=== PATIENT | male | born 1980 | race Caucasian/White ===

== ENCOUNTER 2016-11-10 03:26 | Inpatient (IN) | payer OTHER ==
[~2016-11-10] VITALS: Ht 190.5 cm; Wt 113.4 kg
[2016-11-10 04:39] VITALS: BP 123/86
--- NOTE | 2016-11-10 04:39 | NUR ---
Admission Note Pt is a 36 year old male admitted to [facility] on 11/08/2016 for Opiate/Benzo/Crystal Methamphetamine/Cocaine Dependence, on the [place] at 0439. NKA, denies history of seizures. Pt was able to provide urine drug screen. COWS 4, CIWA 4, BP 123/86, pulse 99, respirations 16, Spo2 98%, temp 98.5, pain 0/10, weight 250 lb and height 6'3''. Pts primary care provider is Dr. Dodge in [place]. Pt denies being hospitalized within the past 30 days. Substance Abuse History is as follows: 1.Heroin IV 1g/daily, last intake of 1g on 11/10/2016, at this rate for 2 years. Pt reports he has been using since the age of 21. 2. Xanax 2.5 bars/daily, last intake of 2 bars on 11/10/2016, at this rate of 2 year on and off. Pt reports he has been using since the age of 21. 3.Crystal Methamphetamine IV 0.75g/daily, last intake of 0.75 g on 11/10/2016, at this rate of 2 year on and off. Pt reports he has been using since the age of 21. 4.Cocaine IV 1-2g/daily, last intake of 0.5 g on 11/10/16, at this rate for the past 3 months. Treatment History: [facility] 2014 for 80 days, [facility] [place] 2015 for 50 day and [facility] in 2014. Pt longest sober period is for 34 months from 2009 - 2012. Pt states, "If I knew why I use, I would tell you". Family history: "Both my parents and my older brother have history of substance abuse". PMH: GERD. Pt brought medications from home: Bactrim 800/160mg and Keflex 500mg, mediations reconciled. Pt has abscesses throughout body d/t injection of substances. Pictures taken and placed in chart. Upon assessment, pt is alert/oriented x4, speech normal/audible. PERRLA. Breathing even and unlabored, lung sounds clear, heart rate regular, denies SOB/chest pain. Skin warm, moist and intake. Bowel sounds active x4, abdomen soft. Pt denies SI/HI. Education hands provided, at bedside. Pt oriented to room and encouraged to notify staff with any concerns. Safety measures in place, call light within reach, side rails up x2, bed locked and in low position. Will continue to monitor. Addendum: 11/10/16 at 0735 by ALEXANDRO WEN RN CORRECTION: Pt is a 36 year old male admitted to [facility] on 11/10/2016 for Opiate/Benzo/Crystal Methamphetamine/Cocaine Dependence, on the [place] at 0439.
[2016-11-10] MEDS ORDERED: CLONIDINE HCL 0.1 MG TABLET PO PRN (05:45)
[2016-11-10] MEDS ORDERED: METHOCARBAMOL 750 MG TABLET PO PRN (05:45)
[2016-11-10] MEDS ORDERED: IBUPROFEN 400 MG TABLET PO PRN (05:45)
[2016-11-10] MEDS ORDERED: MAGNESIUM HYDROXIDE 30 ML LIQUID UDC PO PRN (05:45)
[2016-11-10] MEDS ORDERED: DICYCLOMINE HCL 20 MG TABLET PO PRN (05:45)
[2016-11-10] MEDS ORDERED: ACETAMINOPHEN 325 MG TABLET PO PRN (05:45)
[2016-11-10] MEDS ORDERED: ONDANSETRON ODT 4 MG TAB.RAPDIS SL PRN (05:45)
[2016-11-10] MEDS ORDERED: HYDROXYZINE PAMOATE 25 MG CAPSULE PO PRN (05:45)
[2016-11-10] MEDS ORDERED: LOPERAMIDE HCL 2 MG CAPSULE PO PRN ×2 (05:45)
[2016-11-10] MEDS ORDERED: MIRALAX 17 GM POWD.PACK PO PRN (05:45)
[2016-11-10] MEDS ORDERED: PROMETHAZINE HCL 25 MG/1 ML VIAL IM PRN (05:45)
[2016-11-10] MEDS ORDERED: BUPRENORPHINE HCL 2 MG TAB.SUBL SL PRN (05:45)
[2016-11-10] MEDS ORDERED: LORAZEPAM 2 MG/1 ML VIAL IM PRN (06:00)
[2016-11-10] MEDS ORDERED: DIAZEPAM 10 MG TABLET PO PRN ×2 (06:00)
[2016-11-10] MEDS ORDERED: DIAZEPAM 5 MG TABLET PO PRN (06:00)
[2016-11-10] MEDS ORDERED: CEPH500C2 PO (06:44)
[2016-11-10] MEDS ORDERED: SULF1TAB48 PO (06:44)
[2016-11-10 07:36] LABS: *AMPHETAMINE, URINE POSITIVE (NEGATIVE); *BARBITURATE, URINE NEGATIVE (NEGATIVE); *CANNABINOID, URINE NEGATIVE (NEGATIVE); *COCCAINE, URINE POSITIVE (NEGATIVE); *OPIATE, URINE POSITIVE (NEGATIVE); *PHENCYCLIDINE SCREEN,URINE NEGATIVE (NEGATIVE)
--- NOTE | 2016-11-10 07:47 | NUR ---
End of Shift Pt is a 36 year old male admitted on 11/10/2016 Opiate/Benzo/Crystal Methamphetamine/Cocaine Dependence. Pt reported using Heroin IV 1g/daily, at this rate for 2 years, Xanax 2.5 bars/daily, at this rate of 2 year on and off, Crystal Methamphetamine IV 0.75g/daily, at this rate of 2 year on and off and Cocaine IV 1-2g/daily, last intake of 0.5 g on 11/10/16, at this rate for the past 3 months. PMH: GERD. Pt is noted with abscess d/t injection of substance, pictures taken placed in chart. No PRNs administered during shift, COWS 4, CIWA 5, Pt slept 1 for hour, 200ml PO and voids x1. Safety measures in place, call light within reach, side rails up x2, bed locked and in low position. Endorsed to day shift nurse.
--- NOTE | 2016-11-10 07:50 | NUR ---
START OF SHIFT NOTE Received report from night nurse, 36 year old male admitted on 11/10/2016 Opiate/Benzo/Crystal Methamphetamine/Cocaine Dependence. NKA/Full code/Regular diet. Pt reported PMH: GERD. Pt reported using Heroin IV 1g/daily, at this rate for 2 years, Xanax 2.5 bars/daily, at this rate of 2 year on and off, Crystal Methamphetamine IV 0.75g/daily, at this rate of 2 year on and off and Cocaine IV 1-2g/daily, last intake of 0.5 g on 11/10/16, at this rate for the past 3 months. Per endorsement pt has abscess d/t injection of substance, pictures taken placed in chart, No PRN's administered during shift, COWS 4, CIWA 5, Slept for 1hour. Received pt in his room resting in stable condition, no s/s of distress noted. Currently pt wants to sleep, reported he did not sleep. Safety measures in place, call light within reach. Will cont to monitor.
[2016-11-10 08:00] VITALS: BP 94/56
[2016-11-10 08:04] LABS: BASOPHILS # (AUTO) 0.1 K/uL (0.0-0.2); BASOPHILS % (AUTO) 1.1 % (0.0-2.0); EOSINOPHILS # (AUTO) 0.4 K/uL (0.0-0.7); EOSINOPHILS % (AUTO) 4.4 % (0.0-7.0); HEMATOCRIT 36.4 % (40.0-50.0); HEMOGLOBIN 11.9 g/dL (14.0-18.0); LYMPHOCYTES # (AUTO) 2.9 K/uL (0.8-4.8); LYMPHOCYTES % (AUTO) 29.7 % (20.5-51.5); MEAN CORPUSCULAR HEMOGLOBIN 27.5 uug (27.0-31.0); MEAN CORPUSCULAR HGB CONC 33 g/dL (32.0-37.0); MEAN CORPUSCULAR VOLUME 84.2 fL (82.0-92.0); MONOCYTES # (AUTO) 0.7 K/uL (0.1-1.30); MONOCYTES % (AUTO) 7.7 % (0.0-11.0); NEUTROPHILS # (AUTO) 5.5 K/uL (1.8-8.9); NEUTROPHILS % (AUTO) 57.1 % (38.5-71.5); PLATELET COUNT (AUTO) 253 K/uL (150-450); RED BLOOD CELL COUNT(AUTO) 4.32 MIL/uL (4.70-6.10); RED CELL DISTRIBUTION WIDTH 13.8 % (11.5-14.5); WHITE BLOOD COUNT (AUTO) 9.6 K/uL (4.0-11.2)
[2016-11-10 08:17] LABS: ETHANOL < 3 MG/DL (0-0)
[2016-11-10 08:53] LABS: ALANINE AMINOTRANSFERASE 124 U/L (16-63); ALBUMIN 3.2 g/dL (3.4-5.0); ALKALINE PHOSPHATASE 94 U/L (50-136); AMYLASE 25 U/L (25-115); ASPARTATE AMINOTRANSFERASE 76 U/L (15-37); BILIRUBIN,TOTAL 0.4 mg/dL (0.2-1.0); CALCIUM 8.9 mg/dL (8.5-10.1); CARBON DIOXIDE 28 mmol/L (21-32); CHLORIDE 106 mmol/L (98-107); GFR 54 mL/min (>60); GLUCOSE 94 mg/dL (74-106); LIPASE 69 U/L (73-393); MAGNESIUM 1.8 mg/dL (1.8-2.4); POTASSIUM 4.3 mmol/L (3.5-5.1); SODIUM SERUM 142 mmol/L (136-145); TOTAL PROTEIN, SERUM 7.5 g/dL (6.4-8.2); UREA NITROGEN, BLOOD 15 mg/dL (7-18)
[2016-11-10 08:55] LABS: CREATININE 1.5 mg/dL (0.6-1.3)
[2016-11-10] MEDS: MULTIVITAMINS,THERAPEUTIC TABLET PO SCH (09:07)
[2016-11-10] MEDS: FOLIC ACID 1 MG TABLET PO SCH (09:07)
[2016-11-10 09:26] LABS: THYROID STIMULATING HORMONE 1.838 mIU/mL (0.358-3.740)
[2016-11-10 09:40] LABS: HIV-1 p24 ANTIGEN NON REACTIVE (NONREACTIVE); HIV-1/2 ANTIBODY NON REACTIVE (NONREACTIVE)
[2016-11-10 12:00] VITALS: BP 100/60
[2016-11-10] MEDS: SULFAMETH/TRIMETH 800/160 MG TABLET PO SCH ×2 (12:07→21:23)
[2016-11-10] MEDS ORDERED: TUBERCULIN,PURIF.PROT.DERIV. 5 TU/0.1 ML TEST ID ONE (13:00)
[2016-11-10] MEDS: CEPHALEXIN MONOHYDRATE 500 MG CAPSULE PO SCH ×2 (13:50→16:32)
[2016-11-10] MEDS: GABAPENTIN 300 MG CAPSULE PO SCH ×2 (13:50→16:32)
[2016-11-10 16:00] VITALS: BP 108/58
--- NOTE | 2016-11-10 19:04 | NUR ---
END OF SHIFT NOTE Gave report to night nurse, 36 year old male admitted on 11/10/2016 Opiate/Benzo/Crystal Methamphetamine/Cocaine Dependence. NKA/Full code/Regular diet. Pt reported PMH: GERD. Pt reported using Heroin IV 1g/daily, at this rate for 2 years, Xanax 2.5 bars/daily, at this rate of 2 year on and off, Crystal Methamphetamine IV 0.75g/daily, at this rate of 2 year on and off and Cocaine IV 1-2g/daily, last intake of 0.5 g on 11/10/16, at this rate for the past 3 months. No PRN's administered during shift. Pt rested in his room most of the time, educate the pt to attend groups to learn new coping skills. Pt's total intake 1950ml, voided x3. Safety measures in place, call light within reach. Pt endorsed to night nurse in stable condition.
--- NOTE | 2016-11-10 19:10 | NUR ---
Start of Shift Patient Received. Patient is in room sleeping, but easily arousable to verbal stimuli. Breathing even and non labored. No signs of pain or discomfort. Patient is a 36 year old male, admitted on 11/11/15 for Opiate and Benzo Dependence, under the care of Dr. Osorio. Patient verbalizes no known allergies, wishes to be full code, following regular diet, fall and seizure precautions, skin is noted with multiple scattered abscesses. Patient continues on ATB therapy of Keflex and Bactrim DS. Patient reports past medical history of GERD. Per endorsement, Patient is set to start tapers tomorrow morning 11/10/16 due to patients COWS and CIWA reported 4. All needs attended to promptly. Will continue to monitor.
--- NOTE | 2016-11-10 19:30 | NUR ---
1945- [employer] Evaluation Patient seen and evaluated by Jimenez Almanzar [employer] for multiple scattered abscesses with new order for warm compress to right lower leg abscess q1hr for 15 minutes. will apply as tolerated.
[2016-11-10 19:49] VITALS: BP 124/80
[2016-11-10] MEDS: diphenhydrAMINE 50 MG CAPSULE PO PRN (21:24)
--- NOTE | 2016-11-10 21:25 | NUR ---
PRN Medication Administration Patient was noted with increased signs and symptoms of withdrawal COWS noted at 12 and CIWA 7. Patient states "I dont know what is taking so long for me to get any kind of meds. I stayed in bed all day because I feel like crap." PRN Subutex 4mg, Clonidine 0.1mg, and PRN Benadryl for inability of falling asleep all given and patient able to tolerate well. Will continue to monitor.
--- NOTE | 2016-11-10 23:00 | NUR ---
PRN Medication Reassessment Patient is noted in bed sleeping. Breathing even and non labored. No signs of pain or discomfort noted. Patient given PRN Subutex for COWS of 12, PRN Clonidine for increased anxiety and agitation, PRN Benadryl for inability of falling asleep. PRN Medications noted to be effective. All needs attended to promptly. Will continue to monitor.
[2016-11-11] VITALS (7 sets, daily range): BP systolic 110–151; BP diastolic 60–97
[2016-11-11] MEDS: MAG HYDROX/AL HYDROX/SIMETH 30 ML LIQUID UDC PO PRN (06:14)
--- NOTE | 2016-11-11 06:18 | NUR ---
PRN Medication Administration Patient noted awake with increased signs and symptoms of withdrawal. pateint noted very irritable, increased anxiety, face is flushed, slightly tremulous. COWS noted at 14. patient verbalizing of heartburn. PRN maalox given. PRN Subutex 4mg currently discontinued per protocol. Currently awaiting call back from MD regarding PRN medication. Will continue to monitor.
--- NOTE | 2016-11-11 07:12 | NUR ---
End of Shift Patient Received. Patient is in room awake, alert and verbally responsive. Patient is noed to be restless and agitated. Patient is a 36 year old male, admitted on 11/11/15 for Opiate and Benzo Dependence, under the care of Dr. Osorio. Patient verbalizes no known allergies, wishes to be full code, following regular diet, fall and seizure precautions, skin is noted with multiple scattered abscesses. Patient was seen by [employer] Jimenez Almanzar, with new order for MRSA Swab or the Nares, Results currently pending. Patient continues on ATB therapy of Keflex and Bactrium DS. Patient reports past medical history of GERD. Patient given PRN Subutex 4mg for COWS of 12, PRN Clonidine 0.1mg, Benadryl, and PRN Maalox, with all PRN medications noted to be effective. Patient noted awake this morning verbalizing increased signs and symptoms. PRN Subutex Discontinued due to unit protocol. Currently awaiting for call back from MD. Offered patient other PRN medications but patient verbalized No those meds dont really do anything for me. COWS noted to be 14. Tapers set to start this morning 11/11/16. All needs attended to promptly. Will endorse to continue to monitor.
--- NOTE | 2016-11-11 07:30 | NUR ---
START OF SHIFT NOTE Received report from night nurse, 36 year old male admitted on 11/10/2016 Opiate/Benzo/Crystal Methamphetamine/Cocaine Dependence. NKA/Full code/Regular diet. Pt reported PMH: GERD. Pt reported using Heroin IV 1g/daily, at this rate for 2 years, Xanax 2.5 bars/daily, at this rate of 2 year on and off, Crystal Methamphetamine IV 0.75g/daily, at this rate of 2 year on and off and Cocaine IV 1-2g/daily, last intake of 0.5 g on 11/10/16, at this rate for the past 3 months. Per endorsement pt received PRN Subutex 4mg for COWS of 12, PRN Clonidine 0.1mg, Benadryl, and PRN Maalox,slept for 7 hours, Last COWS 14, CIWA-11. Received pt in his room resting in stable condition, no s/s of distress noted. Educate the pt plan of the day and medication regimen with good verbal understanding. Safety measures in place, call light within reach. Will cont to monitor.
[2016-11-11] MEDS: GABAPENTIN 300 MG CAPSULE PO SCH ×3 (08:12→21:37)
[2016-11-11] MEDS: SULFAMETH/TRIMETH 800/160 MG TABLET PO SCH ×2 (08:13→21:37)
[2016-11-11] MEDS: CEPHALEXIN MONOHYDRATE 500 MG CAPSULE PO SCH ×3 (08:13→16:26)
[2016-11-11] MEDS: LORAZEPAM 1 MG TABLET PO SCH ×4 (08:13→21:37)
[2016-11-11] MEDS: FOLIC ACID 1 MG TABLET PO SCH (08:13)
[2016-11-11] MEDS: MULTIVITAMINS,THERAPEUTIC TABLET PO SCH (08:13)
[2016-11-11] MEDS: BUPRENORPHINE HCL 2 MG TAB.SUBL SL SCH ×4 (08:14→21:38)
[2016-11-11] MEDS ORDERED: 5 DAY TAPER BUPRENORPHINE -SERENITY PROTOCOL SL PRN (09:00)
[2016-11-11] MEDS ORDERED: 5 DAY TAPER OF LORAZEPAM -SERENITY PROTOCOL PO PRN (09:00)
[2016-11-11] MEDS ORDERED: IBUPROFEN 400 MG TABLET PO PRN (14:00)
[2016-11-11] MEDS ORDERED: IBUPROFEN 600 MG TABLET PO PRN (14:15)
[2016-11-11] MEDS: CLONIDINE HCL 0.1 MG TABLET PO SCH ×2 (14:54→21:38)
--- NOTE | 2016-11-11 14:54 | NUR ---
REFUSED MED Pt refused Clonidine 0.1mg Po "Pt stated I am doing fine I don't need any medication".Offered x3 risk and benefits explained. Pt verbalized understanding but still refused. aware.
--- NOTE | 2016-11-11 18:54 | NUR ---
PRN MEDS Pt c/o of muscle pain, back ache, and general body pain, Administered Robaxin 750mg/Motrin 600mg as ordered. Safety measures in place, call light within reach. Will cont to monitor.
--- NOTE | 2016-11-11 19:17 | NUR ---
END OF SHIFT NOTE Gave report to night nurse, 36 year old male admitted on 11/10/2016 Opiate/Benzo/Crystal Methamphetamine/Cocaine Dependence. NKA/Full code/Regular diet. Pt reported PMH: GERD. Pt reported using Heroin IV 1g/daily, at this rate for 2 years, Xanax 2.5 bars/daily, at this rate of 2 year on and off, Crystal Methamphetamine IV 0.75g/daily, at this rate of 2 year on and off and Cocaine IV 1-2g/daily, last intake of 0.5 g on 11/10/16, at this rate for the past 3 months. No PRN's administered during shift. Pt rested in his room most of the time, educate the pt to attend groups to learn new coping skills. Pt received PRN Robaxin 750mg/ Motrin 600mg for muscle ache and pain, Endorsed to night nurse to reassess the pt. Last CIWA-2, COWS-5. Pt's total intake 500ml, voided x1. Safety measures in place, call light within reach. Pt endorsed to night nurse in stable condition.
--- NOTE | 2016-11-11 20:00 | NUR ---
START OF SHIFT NOTE AND REASSESSMENT OF ROBAXIN AND MOTRIN Received report from day shift nurse. Pt is 36 y o male, admitted on 11/10/16 for heroin (1 g daily for 2 yrs), xanax (5 mg daily for 2 yrs), crystal methamphetamine (0.75 g daily for 2 yrs), and cocaine (1-2 g daily for 3 months). Pt placed on 5 day Subutex, 5 day Ativan taper both started 11/11/16. Pt in room, aaox4. Pt reports mild anxiety, educated on relaxation technique. Skim warm, with minimal sweating. Noted multiple abscesses, pt receives PO Bactrim and Keflex. Noted minimal fingertip to fingertip tremors. Pt denies tingling/ itching. Lung sounds clear, heart rate regular. Bowel sounds active x 4, pt denies n/v/d/ stomach cramps. Pt denies urinary difficulties. Pt denies pain/ body aches at this time, Robaxin and Motrin as per report were given by day shift nurse, were effective. Noted MRSA nares and blood culture obtained, pending results. PMH of GERD. Pt is on full code, regular diet, NKA. Pt is on fall and seizure precautions. Side rails up x 2, call light within reach, bed locked in lowest position. Will continue with plan of care
--- NOTE | 2016-11-11 21:15 | NUR ---
NEW ORDER: I&D Noted new order from Dr Cardenas for I&D and debridement of right lower leg abscess.
[2016-11-12] VITALS: BP 113/81
[2016-11-12 04:00] VITALS: BP 108/74
[2016-11-12] MEDS ORDERED: SILVER NITRATE APPLICATOR STICK EACH TP ONE (05:46)
--- NOTE | 2016-11-12 07:01 | NUR ---
END OF SHIFT NOTE Pt is 36 y o male, admitted on 11/10/16 for heroin (1 g daily for 2 yrs), xanax (5 mg daily for 2 yrs), crystal methamphetamine (0.75 g daily for 2 yrs), and cocaine (1-2 g daily for 3 months). Pt is on day 2 of 5 day Subutex, 5 day Ativan taper both started 11/11/16. Pt was compliant and cooperative. Withdrawal s/s incude tremors, anxiety, sweats. Pt received all scheduled medicationms, last COWS 3, CIWA 2 at 0400. VSS. No prn medications given. Pt slept for 10 hrs, PO intake 355 ml, urine x 1. Pt has multiple abscesses from IV injections, pt scheduled for right lower leg abscess I&D, informed consent in chart, needs to be signed. Pt on PO Keflex and Bactrim for cellulitis. PMH of GERD. Pt is on full code, regular diet, NKA. Pt is on fall and seizure precautions. Report endorsed to day shift note.
--- NOTE | 2016-11-12 07:30 | NUR ---
Start of Shift note; Received report from night nurse. Patient is a 36 year old male, admitted on 11/11/15 for Opiate and Benzo Dependence, under the care of Dr. Osorio. Patient verbalizes no known allergies, on full code status and on regular diet, fall and seizure precautions observed, skin is noted with multiple scattered abscesses. Patient continues on ATB therapy of Keflex and Bactrim DS. Patient reported past medical history of GERD. Per endorsement, last COWS score is 3 and last CIWA is 2. Patient was placed on modified Ativan and Subutex tapers. Patient slept for 10 hours. Safety measures secured. Will continue to monitor.
[2016-11-12 08:00] VITALS: BP 110/68
[2016-11-12] MEDS: BUPRENORPHINE HCL 2 MG TAB.SUBL SL SCH ×3 (08:24→20:45)
[2016-11-12] MEDS: LORAZEPAM 1 MG TABLET PO SCH ×3 (08:24→20:41)
[2016-11-12] MEDS: CEPHALEXIN MONOHYDRATE 500 MG CAPSULE PO SCH ×3 (08:25→16:27)
[2016-11-12] MEDS: MULTIVITAMINS,THERAPEUTIC TABLET PO SCH (08:25)
[2016-11-12] MEDS: SULFAMETH/TRIMETH 800/160 MG TABLET PO SCH ×2 (08:25→20:41)
[2016-11-12] MEDS: GABAPENTIN 300 MG CAPSULE PO SCH ×3 (08:25→20:41)
[2016-11-12] MEDS: FOLIC ACID 1 MG TABLET PO SCH (08:25)
[2016-11-12] MEDS: CLONIDINE HCL 0.1 MG TABLET PO SCH ×3 (08:27→20:41)
[2016-11-12 12:00] VITALS: BP 96/67
--- NOTE | 2016-11-12 12:00 | NUR ---
MD communication; MD made aware that patient refused further blood works and patient refused to provide UA at this time, educated patient regarding the importance of compliance to treatment plan, verbalized understanding.
[2016-11-12 16:00] VITALS: BP 102/77
--- NOTE | 2016-11-12 18:17 | NUR ---
End of shift note; Patient is AOX4. Patient is a 36 year old male, admitted on 11/11/15 for Opiate and Benzo Dependence, under the care of Dr. Osorio. Patient verbalizes no known allergies, on full code status and on regular diet, fall and seizure precautions observed, skin is noted with multiple scattered abscesses. Patient continues on ATB therapy of Keflex and Bactrim DS. Patient reported past medical history of GERD. Per endorsement, last COWS score is 4 and last CIWA is 4. Patient was placed on modified Ativan and Subutex tapers, no adverse reactions noted. Safety measures secured. Met all needs.
[2016-11-12 20:00] VITALS: BP 124/79
--- NOTE | 2016-11-12 20:00 | NUR ---
Start of Shift Pt is a 36 year old male admitted on 11/10/2016 Opiate/Benzo/Crystal Methamphetamine/Cocaine Dependence. Pt reported using Heroin IV 1g/daily for 2 year, Xanax 2.5 bars/daily for 2 year on and off, Crystal Methamphetamine IV 0.75g/daily for 2 years, and Cocaine IV 1-2g/daily for the past 3 months. PMH: GERD. NKA, regular diet, fall/seizure precautions no history of seizures and full code. Pt is noted with multiple abscesses, pictures in chart, pt received PO Keflex and Bactrim. I&D and debridement of right lower leg abscess to be done. Upon assessment, Pt presents with fatigue, joint/muscle aches, anxiety, with tremors felt upon touch, respirations even and unlabored, denies SOB/chest pain, denies n/v/d, skin warm and moist, bowel sounds active x4, abdomen soft. Safety measures in place, call light within reach, side rails up x2, bed locked and in low position. Will continue to monitor.
[2016-11-13] VITALS: BP 107/64
--- NOTE | 2016-11-13 | NUR ---
Vital Signs BP 104/64, Pulse 87, respirations 14, Spo2 97%, temp 98.2 and 0/10 pain. COWS/CIWA assessment deferred d/t pt sleeping - to assess while pt is awake as ordered. Pt is sleeping, no s/s of distress noted, respirations even and unlabored. Safety measures in place, call light within reach, side rails up x2, bed locked and in low position. Will continue to monitor.
[2016-11-13] MEDS: MAG HYDROX/AL HYDROX/SIMETH 30 ML LIQUID UDC PO PRN ×2 (00:52→23:05)
--- NOTE | 2016-11-13 00:52 | NUR ---
PRN Administration Pt reported heartburn, requested relief. Maalox 30ml PRN administered. Safety measures in place, call light within reach, side rails up x2, bed locked and in low position. Will continue to monitor.
[2016-11-13] MEDS: FAMOTIDINE 20 MG TABLET PO SCH ×3 (01:47→17:16)
--- NOTE | 2016-11-13 01:47 | NUR ---
PRN Reassessment Upon reassessment, Maalox ineffective, pt reports continuous heartburn. Obtained order for Pepcid 20mg PRN PO BID, administered. Safety measures in place, call light within reach, side rails up x2, bed locked and in low position. Will continue to monitor.
--- NOTE | 2016-11-13 04:00 | NUR ---
Pt refused to be woken for 0400 VS COWS/CIWA assessment deferred d/t pt sleeping - to assess while pt is awake as ordered. Pt is sleeping, no s/s of distress noted, respirations even and unlabored. Safety measures in place, call light within reach, side rails up x2, bed locked and in low position. Will continue to monitor.
--- NOTE | 2016-11-13 07:00 | NUR ---
End of Shift Pt is a 36 year old male admitted on 11/10/2016 Opiate/Benzo/Crystal Methamphetamine/Cocaine Dependence. Pt reported using Heroin IV 1g/daily for 2 year, Xanax 2.5 bars/daily for 2 year on and off, Crystal Methamphetamine IV 0.75g/daily for 2 years, and Cocaine IV 1-2g/daily for the past 3 months. PMH: GERD. NKA, regular diet, fall/seizure precautions no history of seizures and full code. Pt is noted with multiple abscesses, pictures in chart, pt received PO Keflex and Bactrim. I&D and debridement of right lower leg abscess to be done. During shift pt presented with fatigue, joint/muscle aches, anxiety, with tremors felt upon touch scheduled medications administered, COWS 6, CIWA 4. Maalox administered for heartburn ineffective, obtained order for Pepcid 20mg PRN PO BID, administered & effective. VS stable, Pt slept for 6 hours, intake of 800 ml PO and voids x2. Safety measures in place, call light within reach, side rails up x2, bed locked and in low position. Endorsed to day shift nurse.
--- NOTE | 2016-11-13 07:20 | NUR ---
START OF SHIFT NOTE Received report from night nurse, 36 year old male admitted on 11/10/2016 Opiate/Benzo/Crystal Methamphetamine/Cocaine Dependence. NKA/Full code/Regular diet. Pt reported PMH: GERD. Pt reported using Heroin IV 1g/daily, at this rate for 2 years, Xanax 2.5 bars/daily, at this rate of 2 year on and off, Crystal Methamphetamine IV 0.75g/daily, at this rate of 2 year on and off and Cocaine IV 1-2g/daily, last intake of 0.5 g on 11/10/16, at this rate for the past 3 months. Per endorsement pt received PRN Maalox ineffective new order for Pepcid bid daily, pt slept for 6 hours, Last COWS -6, CIWA-4. Received pt in his room pt presented with fatigue, no s/s of distress noted. Educate the pt plan of the day and medication regimen with good verbal understanding. Safety measures in place, call light within reach. Will cont to monitor.
[2016-11-13 08:00] VITALS: BP 114/62
[2016-11-13] MEDS: LORAZEPAM 1 MG TABLET PO SCH ×4 (08:25→21:06)
[2016-11-13] MEDS: CEPHALEXIN MONOHYDRATE 500 MG CAPSULE PO SCH ×3 (08:25→17:16)
[2016-11-13] MEDS: GABAPENTIN 300 MG CAPSULE PO SCH ×3 (08:25→21:06)
[2016-11-13] MEDS: FOLIC ACID 1 MG TABLET PO SCH (08:25)
[2016-11-13] MEDS: MULTIVITAMINS,THERAPEUTIC TABLET PO SCH (08:25)
[2016-11-13] MEDS: CLONIDINE HCL 0.1 MG TABLET PO SCH ×3 (08:26→21:06)
[2016-11-13] MEDS: SULFAMETH/TRIMETH 800/160 MG TABLET PO SCH ×2 (08:26→21:06)
[2016-11-13] MEDS ORDERED: BUPRENORPHINE HCL 2 MG TAB.SUBL SL SCH (09:00)
--- NOTE | 2016-11-13 10:30 | NUR ---
INCISION AND DRAINAGE per MD orders patient to have procedure of incision and drainage done by surgeon in unit. Consent for procedure obtained from patient witnessed by staff nurse. Dr. Marco Cardenas (surgeon) on unit to perform I&D of right lower leg abscess. Risk vs benefits were explained with good verbal understanding. Procedure done well tolerated, specimen culture collected by MD, specimen taken to lab. Area was dressed by MD, area kept clean and dry. will continue to monitor.
[2016-11-13 11:22] LABS: *BLOOD, URINE NEGATIVE (NEGATIVE); *CLARITY,URINE CLOUDY (CLEAR); *COLOR,URINE YELLOW (YELLOW); *KETONES,URINE NEGATIVE (NEGATIVE); *PROTEIN,URINE 1+ (NEGATIVE); *UROBILINOGEN,URINE 0.2 E.U./dl (NORMAL); LEUKOCYTE ESTERASE ,URINE NEGATIVE (NEGATIVE); NITRITE, URINE NEGATIVE (NEGATIVE); UGLUCOSE NEGATIVE (NEGATIVE)
[2016-11-13 11:37] LABS: *CREATININE,URINE 395.9 mg/dL (30-125)
[2016-11-13 11:46] LABS: *BILIRUBIN,URIN NEGATIVE (NEGATIVE)
[2016-11-13 11:51] LABS: BACTERIA,URINE FEW /HPF (NONE SEEN); CALCIUM OXALATE CRYSTALS,UR FEW /HPF (NONE SEEN); RBC,URINE 0-3 /HPF (0-3); SQUAMOUS EPITHELIAL CELL,UR FEW /HPF (NONE SEEN); WBC,URINE 0-3 /HPF (0-3)
[2016-11-13 11:52] LABS: SPERM,URINE PRESENT /HPF (NONE SEEN)
[2016-11-13 12:00] VITALS: BP 104/66
[2016-11-13] MEDS: BUPRENORPHINE HCL 2 MG TAB.SUBL SL SCH ×2 (14:57→21:05)
--- NOTE | 2016-11-13 14:57 | NUR ---
REFUSED MEDS Pt refused Clonidine/Gabapentin offered x3 risk and benefits explained "pt stated i don't need it because it is making me too tired". aware. Will cont to monitor.
[2016-11-13 16:00] VITALS: BP 99/63
--- NOTE | 2016-11-13 19:17 | NUR ---
END OF SHIFT NOTE Gave report to night nurse, 36 year old male admitted on 11/10/2016 Opiate/Benzo/Crystal Methamphetamine/Cocaine Dependence. NKA/Full code/Regular diet. Pt reported PMH: GERD. Pt reported using Heroin IV 1g/daily, at this rate for 2 years, Xanax 2.5 bars/daily, at this rate of 2 year on and off, Crystal Methamphetamine IV 0.75g/daily, at this rate of 2 year on and off and Cocaine IV 1-2g/daily, last intake of 0.5 g on 11/10/16, at this rate for the past 3 months. No PRN's administered during shift. Pt attended all groups and activities. Last CIWA-0, COWS-0. Pt's total intake 1743ml, voided x2. Safety measures in place, call light within reach. Pt endorsed to night nurse in stable condition.
[2016-11-13 20:00] VITALS: BP 108/77
--- NOTE | 2016-11-13 20:00 | NUR ---
Start of Shift Pt is a 36 year old male admitted on 11/10/2016 Opiate/Benzo/Crystal Methamphetamine/Cocaine Dependence. Pt reported using Heroin IV 1g/daily for 2 year, Xanax 2.5 bars/daily for 2 year on and off, Crystal Methamphetamine IV 0.75g/daily for 2 years, and Cocaine IV 1-2g/daily for the past 3 months. PMH: GERD. NKA, regular diet, fall/seizure precautions no history of seizures and full code. Pt is noted with multiple abscesses, pt is on PO Keflex and Bactrim. I&D and debridement of right lower leg abscess completed during day shift, post drainage picture placed in chart. Upon assessment, Pt presents with fatigue, muscle aches, respirations even and unlabored, denies SOB/chest pain, denies n/v/d, skin warm and moist, bowel sounds active x4, abdomen soft. Safety measures in place, call light within reach, side rails up x2, bed locked and in low position. Will continue to monitor.
[2016-11-13] MEDS: diphenhydrAMINE 50 MG CAPSULE PO PRN (23:05)
--- NOTE | 2016-11-13 23:05 | NUR ---
PRN Administration Pt reported heartburn, requested relief and requested aid to help him sleep. Maalox 30ml PRN and Benadryl 50mg PRN administered. Safety measures in place, call light within reach, side rails up x2, bed locked and in low position. Will continue to monitor.
--- NOTE | 2016-11-13 23:58 | NUR ---
PRN Reassessment Upon reassessment, pt is sleeping, no s/s of distress noted, respirations even and unlabored. Safety measures in place, call light within reach, side rails up x2, bed locked and in low position. Will continue to monitor.
[2016-11-14] VITALS: BP 102/67
--- NOTE | 2016-11-14 | NUR ---
Vital Signs BP 102/67, Pulse 91, respirations 16, Spo2 98%, temp 97.9 and 0/10 pain. COWS/CIWA assessment deferred d/t pt sleeping - to assess while pt is awake as ordered. Pt is sleeping, no s/s of distress noted, respirations even and unlabored. Safety measures in place, call light within reach, side rails up x2, bed locked and in low position. Will continue to monitor.
--- NOTE | 2016-11-14 07:30 | NUR ---
Start of shift Endorsement received from nightshift nurse. Pt is a 36 y/o male admitted for Heroin and xanax dependence. Pt has been placed on a 5 day Subutex and 5 day Ativan taper. Pt is mildly withdrawing AEB COWS 3, CIWA 2. Pt received PRN Maalox and Benadryl. Pt reports sleeping 6 hours . VS WNL, Full Code. PT is alert and oriented x4. Pt is in STABLE condition at this time. Remains compliant with medication and diet regimen. All needs have been met, All safety measures in place per hospital policy. Bed in lowest position, side rails up x2, call-light within reach. Will continue to monitor
--- NOTE | 2016-11-14 07:36 | NUR ---
End of Shift Pt is a 36 year old male admitted on 11/10/2016 Opiate/Benzo/Crystal Methamphetamine/Cocaine Dependence. Pt reported using Heroin IV 1g/daily for 2 year, Xanax 2.5 bars/daily for 2 year on and off, Crystal Methamphetamine IV 0.75g/daily for 2 years, and Cocaine IV 1-2g/daily for the past 3 months. PMH: GERD. NKA, regular diet, fall/seizure precautions no history of seizures and full code. Pt is noted with multiple abscesses, pt is on PO Keflex and Bactrim. I&D of right lower leg abscess dressing site is dry, clean and intact with no s/s of bleeding noted. During shift, pt presented with fatigue, muscle aches, scheduled taper medications administered, effective in management of s/s of withdrawal as stated by pt, COWS 3 and CIWA 2. Maalox 30ml PRN and Benadryl 50mg PRN administered, effective. VS stable, pt slept for 6 hours, intake of 1427 ml PO and voids x2. Safety measures in place, call light within reach, side rails up x2, bed locked and in low position. Endorsed to day shift nurse.
[2016-11-14 08:00] VITALS: BP 108/62
[2016-11-14] MEDS: GABAPENTIN 300 MG CAPSULE PO SCH ×3 (09:21→22:00)
[2016-11-14] MEDS: CEPHALEXIN MONOHYDRATE 500 MG CAPSULE PO SCH ×3 (09:22→17:21)
[2016-11-14] MEDS: SULFAMETH/TRIMETH 800/160 MG TABLET PO SCH (09:22)
[2016-11-14] MEDS: FAMOTIDINE 20 MG TABLET PO SCH ×2 (09:22→17:21)
[2016-11-14] MEDS: MULTIVITAMINS,THERAPEUTIC TABLET PO SCH (09:22)
[2016-11-14] MEDS: LORAZEPAM 1 MG TABLET PO SCH ×3 (09:22→22:00)
[2016-11-14] MEDS: CLONIDINE HCL 0.1 MG TABLET PO SCH ×3 (09:22→22:00)
[2016-11-14] MEDS: FOLIC ACID 1 MG TABLET PO SCH (09:22)
[2016-11-14] MEDS: BUPRENORPHINE HCL 2 MG TAB.SUBL SL SCH ×3 (09:22→22:00)
[2016-11-14 12:00] VITALS: BP 100/61
--- NOTE | 2016-11-14 12:35 | NUR ---
Communication: Orders obtained from Dr. Cardenas for wound care. Patient was informed and education was provided.
[2016-11-14 16:00] VITALS: BP 105/68
--- NOTE | 2016-11-14 17:44 | NUR ---
Wound Care Performed wound care and changed packing per protocol.
[2016-11-14] MEDS: SODIUM HYPOCHLORITE 0.5% TOP SCH (17:49)
--- NOTE | 2016-11-14 19:07 | NUR ---
End of Shift Endorsement given to nightshift nurse. Pt is a 36 y/o male admitted for Heroin and xanax dependence. Pt has been placed on a 5 day Subutex and 5 day Ativan taper. Pt is mildly withdrawing AEB COWS 2, CIWA 2. Pt did not receive any PRN medications, reports readiness to be sober. Educated pt on importance of surrounding himself with people that promote his chances of staying sober. Pt reports sleeping 6 hours . VS WNL, Full Code. PT is alert and oriented x4. Pt is in STABLE condition at this time. Remains compliant with medication and diet regimen. All needs have been met, All safety measures in place per hospital policy. Bed in lowest position, side rails up x2, call-light within reach. Will continue to monitor
--- NOTE | 2016-11-14 19:08 | NUR ---
Start of shift note Received report from day shift nurse. Pt is a 36 yo male, A+Ox4, presenting to [facility] for Opiate/Benzo/Meth/Cocaine dependence. Pt has NKA, is Full Code status, and on Regular diet. Pt is on Fall and Seizure precautions. Pt has HX of GERD and Right leg abscess with continued wound treatment, tolerated well. Pt is on 5 day Subutex and Ativan tapers, tolerated well. No s/s of distress noted at this time. Respirations even and unlabored. Will continue to monitor.
[2016-11-14 20:39] VITALS: BP 122/81
[2016-11-14] MEDS: DOXYCYCLINE HYCLATE 100 MG TABLET PO SCH (22:00)
[2016-11-14] MEDS ORDERED: TRAZODONE 50 MG TABLET PO ONE (22:15)
[2016-11-14] MEDS ORDERED: TRAZODONE 50 MG TABLET ONE (22:56)
--- NOTE | 2016-11-14 23:05 | NUR ---
PRN Trazodone Pt c/o inability to sleep and requested for PRN Trazodone. Medication given and tolerated well. Will reassess within 1 HR. Will continue to monitor.
--- NOTE | 2016-11-15 00:05 | NUR ---
PRN Trazodone Reassessment Medication effective. No s/s of ASE/distress noted at this time. Respirations even and unlabored. Will continue to monitor.
[2016-11-15 00:35] VITALS: BP 104/58
--- NOTE | 2016-11-15 04:25 | NUR ---
V/S, COWS, and CIWA Refused V/S, COWS, and CIWA Refused. no s/s of distress noted at this time. Respirations even and unlabored. Will continue to monitor.
--- NOTE | 2016-11-15 07:00 | NUR ---
Start of shift Endorsement received from nightshift nurse. Pt is a 36 y/o male admitted for Heroin and xanax dependence. Pt has been placed on a 5 day Subutex and 5 day Ativan taper. Pt is mildly withdrawing AEB COWS 2, CIWA 2. Pt received Benadryl. Pt reports sleeping 6 hours . VS WNL, Full Code. PT is alert and oriented x4. Pt is in STABLE condition at this time. Remains compliant with medication and diet regimen. All needs have been met, All safety measures in place per hospital policy. Bed in lowest position, side rails up x2, call-light within reach. Will continue to monitor
--- NOTE | 2016-11-15 07:05 | NUR ---
End of shift note Pt is a 36 yo male, A+Ox4, presenting to [facility] for Opiate/Benzo/Meth/Cocaine dependence. Pt has NKA, is Full Code status, and on Regular diet. Pt is on Fall and Seizure precautions. Pt has HX of GERD and Right leg abscess with continued wound treatment, tolerated well. Pt is on 5 day Subutex and Ativan tapers, tolerated well. Pt was given PRN Trazodone @2305. Pt slept for a total of 6 HRS. Last COWS: 2 and Last CIWA: 2 @0000. No s/s of distress noted at this time. Respirations even and unlabored. Willl endorse to day shift nurse.
[2016-11-15 08:04] VITALS: BP 109/62
[2016-11-15] MEDS: SODIUM HYPOCHLORITE 0.5% TOP SCH (09:00)
[2016-11-15] MEDS ORDERED: BUPRENORPHINE HCL 2 MG TAB.SUBL SL SCH (09:00)
[2016-11-15] MEDS: MULTIVITAMINS,THERAPEUTIC TABLET PO SCH (09:07)
[2016-11-15] MEDS: FOLIC ACID 1 MG TABLET PO SCH (09:07)
[2016-11-15] MEDS: DOXYCYCLINE HYCLATE 100 MG TABLET PO SCH ×2 (09:07→22:47)
[2016-11-15] MEDS: FAMOTIDINE 20 MG TABLET PO SCH ×2 (09:07→17:15)
[2016-11-15] MEDS: GABAPENTIN 300 MG CAPSULE PO SCH ×3 (09:07→22:48)
[2016-11-15] MEDS: CEPHALEXIN MONOHYDRATE 500 MG CAPSULE PO SCH ×3 (09:08→17:16)
[2016-11-15] MEDS: CLONIDINE HCL 0.1 MG TABLET PO SCH ×3 (09:08→22:48)
[2016-11-15] MEDS: LORAZEPAM 1 MG TABLET PO SCH ×2 (09:08→22:48)
[2016-11-15 12:00] VITALS: BP 114/68
--- NOTE | 2016-11-15 13:00 | NUR ---
Wound Care Wound care performed, wound packing performed and rewrapped per orders.
[2016-11-15 15:18] LABS: BASOPHILS # (AUTO) 0.1 K/uL (0.0-0.2); BASOPHILS % (AUTO) 0.6 % (0.0-2.0); EOSINOPHILS # (AUTO) 0.4 K/uL (0.0-0.7); EOSINOPHILS % (AUTO) 4.3 % (0.0-7.0); HEMATOCRIT 37.4 % (40.0-50.0); HEMOGLOBIN 12.1 g/dL (14.0-18.0); LYMPHOCYTES # (AUTO) 2.3 K/uL (0.8-4.8); LYMPHOCYTES % (AUTO) 24.9 % (20.5-51.5); MEAN CORPUSCULAR HGB CONC 33 g/dL (32.0-37.0); MEAN CORPUSCULAR VOLUME 83.2 fL (82.0-92.0); MONOCYTES # (AUTO) 0.6 K/uL (0.1-1.30); NEUTROPHILS # (AUTO) 5.8 K/uL (1.8-8.9); NEUTROPHILS % (AUTO) 64.2 % (38.5-71.5); PLATELET COUNT (AUTO) 288 K/uL (150-450); RED BLOOD CELL COUNT(AUTO) 4.49 MIL/uL (4.70-6.10); RED CELL DISTRIBUTION WIDTH 14.4 % (11.5-14.5); WHITE BLOOD COUNT (AUTO) 9.2 K/uL (4.0-11.2)
[2016-11-15 15:21] LABS: ALBUMIN 3.2 g/dL (3.4-5.0); BILIRUBIN,DIRECT 0.1 mg/dL (0.0-0.2); BILIRUBIN,TOTAL 0.5 mg/dL (0.2-1.0); CREATININE 1.2 mg/dL (0.6-1.3); TOTAL PROTEIN, SERUM 7.7 g/dL (6.4-8.2)
[2016-11-15 16:00] VITALS: BP 112/68
--- NOTE | 2016-11-15 19:11 | NUR ---
End of Shift Endorsement given to nightshift nurse. Pt is a 36 y/o male admitted for Heroin and xanax dependence. Pt has been placed on a 5 day Subutex and 5 day Ativan taper. Pt is mildly withdrawing AEB COWS 2, CIWA 0. Pt did not receive any PRN medications, reports readiness to be sober. Pt participated in groups and activities. Educated pt on importance of surrounding himself with people that promote his chances of staying sober. Intake: 2100ml, Void x4, BM x0. VS WNL, Full Code. PT is alert and oriented x4. Pt is in STABLE condition at this time. Remains compliant with medication and diet regimen. All needs have been met, All safety measures in place per hospital policy. Bed in lowest position, side rails up x2, call-light within reach. Will continue to monitor
--- NOTE | 2016-11-15 19:12 | NUR ---
Start of shift note Received report from day shift nurse. Pt is a 36 yo male, A+Ox4, presenting to [facility] for Opiate/Benzo/Meth/Cocaine dependence. Pt has NKA, is Full Code status, and on Regular diet. Pt is on Fall and Seizure precautions. Pt has HX of GERD and Right leg abscess with continued wound treatment, tolerated well. Pt is on 5 day Subutex and Ativan tapers, tolerated well. No s/s of distress noted at this time. Respirations even and unlabored. Will continue to monitor.
[2016-11-15 20:14] VITALS: BP 104/72
[2016-11-15] MEDS: MIRTAZAPINE 15 MG TABLET PO SCH (22:48)
--- NOTE | 2016-11-16 00:16 | NUR ---
V/S, COWS, and CIWA Refused V/S, COWS, and CIWA Refused. no s/s of distress noted at this time. Respirations even and unlabored. Will continue to monitor.
--- NOTE | 2016-11-16 04:11 | NUR ---
V/S, COWS, and CIWA Refused V/S, COWS, and CIWA Refused. no s/s of distress noted at this time. Respirations even and unlabored. Will continue to monitor.
--- NOTE | 2016-11-16 06:59 | NUR ---
End of shift note Pt is a 36 yo male, A+Ox4, presenting to [facility] for Opiate/Benzo/Meth/Cocaine dependence. Pt has NKA, is Full Code status, and on Regular diet. Pt is on Fall and Seizure precautions. Pt has HX of GERD and Right leg abscess with continued wound treatment, tolerated well. Pt is on 5 day Subutex and Ativan tapers, tolerated well. Pt slept for a total of 6 HRS. Last COWS: 3 and Last CIWA: 1 @1999. No s/s of distress noted at this time. Respirations even and unlabored. Will endorse to day shift nurse.
--- NOTE | 2016-11-16 07:30 | NUR ---
START OF SHIFT Pt 36 y/o male admitted for opiate , benzo/ methamphetamine/ cocaine dependence. Pt received in room with eyes closed resting, but easily arousable to name. Pt alert and oriented to name, place, and time. [place]. Respirations even and unlabored. Skin warm and slightly moist to touch. It was reported that pt slept for 6 hours last night. Bed on lowest position with side rails x2 up for safety. Call light within reach. No distress noted at this time.
[2016-11-16 08:00] VITALS: BP 111/72
[2016-11-16] MEDS: SODIUM HYPOCHLORITE 0.5% TOP SCH (09:00)
--- NOTE | 2016-11-16 10:00 | NUR ---
NSG ENTRY Pt observed in room watching television. No distress noted at this time.
[2016-11-16] MEDS: DOXYCYCLINE HYCLATE 100 MG TABLET PO SCH (10:29)
[2016-11-16] MEDS: FAMOTIDINE 20 MG TABLET PO SCH ×2 (10:29→17:37)
[2016-11-16] MEDS: FOLIC ACID 1 MG TABLET PO SCH (10:29)
[2016-11-16] MEDS: CEPHALEXIN MONOHYDRATE 500 MG CAPSULE PO SCH ×3 (10:29→17:36)
[2016-11-16] MEDS: CLONIDINE HCL 0.1 MG TABLET PO SCH ×3 (10:29→20:51)
[2016-11-16] MEDS: GABAPENTIN 300 MG CAPSULE PO SCH ×3 (10:29→20:51)
[2016-11-16] MEDS: MULTIVITAMINS,THERAPEUTIC TABLET PO SCH (10:29)
[2016-11-16 12:00] VITALS: BP 134/87
[2016-11-16 16:00] VITALS: BP 129/88
--- NOTE | 2016-11-16 18:41 | NUR ---
END OF SHIFT Pt 36 y/y male admitted for opiate/ benzo/ methamphetamine/cocaine dependence. Pt alert and oriented to name, place, and time. [place]. Skin warm and dry to touch. Respirations even and unlabored. Pt observed mostly in dining room throughout the day. Wound treament ot right lower leg done and pt tolerated well. Wound area with no redness and is not hot to touch. Pt medication compliant and tolerated well. No ASE noted. Bed on lowest position with side rails x2 up for safety. Call light within reach. No distress noted at this time.
--- NOTE | 2016-11-16 19:20 | NUR ---
Start of Shift Patient Received. Patient is in activities room participating in group activities. Patient is a 36 year old male, admitted on 11/10/16 for Opiate and Benzo Dependence, under the care of Dr. Osorio. Patient received both 5 day Ativan and 5 day Subutex. Patient verbalizes no known allergies, wishes to be full code, following a regular diet, placed on fall and seizure precautions. Past Medical History of Gerd. Patient currently receiving ATB Vibramycin PO for R Leg Cellulitis. Per endorsement, Patient active with group activities and is tolerating plan of care well. Would care rendered with no further skin breakdowns or infections noted. Will continue plan of care as ordered.
--- NOTE | 2016-11-16 20:00 | NUR ---
AIR INTELLIGENCE SPECIALIST Communication Patient seen and evaluated by AIR INTELLIGENCE SPECIALIST for Infectious Diseases with new orders to change ATB orders to Levaquin 500mg. Will administer accordingly.
[2016-11-16 20:45] VITALS: BP 133/82
[2016-11-16] MEDS: LEVOFLOXACIN 500 MG TABLET PO SCH (20:51)
[2016-11-16] MEDS: MIRTAZAPINE 15 MG TABLET PO SCH (20:51)
[2016-11-16] MEDS ORDERED: LEVOFLOXACIN 500 MG TABLET ONE (20:54)
--- NOTE | 2016-11-17 00:39 | NUR ---
Vitals, CIWA, and COWS Patient Refused 0000 vitals prior to bed. Patient states "Ill pass on vitals tonight" Patient noted in bed sleeping. Breathing even and non labored. No signs of pain or discomfort noted. Patients respirations noted at 14. CIWA and COWS not able to be completed as per order. Will continue to monitor. Addendum: 11/17/16 at 0040 by BENNY LANGLEY LVN Amended: Links added.
--- NOTE | 2016-11-17 04:11 | NUR ---
Vitals, CIWA, and COWS Patient Refused 0400 vitals prior to bed. Patient states "I would like to sleep please." Patient noted in bed sleeping. Breathing even and non labored. No signs of pain or discomfort noted. Patients respirations noted at 14. CIWA and COWS not able to be completed as per order. Will continue to monitor. Addendum: 11/17/16 at 0413 by BENNY LANGLEY LVN Amended: Links added.
--- NOTE | 2016-11-17 07:18 | NUR ---
End of Shift Patient is in bed sleeping. Breathing even and non labored. No signs of pain or discomfort noted. Patient is a 36 year old male, admitted on 11/10/16 for Opiate and Benzo Dependence, under the care of Dr. Osorio. Patient received both 5 day Ativan and 5 day Subutex. Patient verbalizes no known allergies, wishes to be full code, following a regular diet, placed on fall and seizure precautions. Past Medical History of Gerd. Patient was seen and evaluated by Infectious Disease NET DEVELOPER WITH [facility] with changes to ATB orders from Vibramycin to Levaquin 500mg Q12H PO for R Leg Cellulitis. No PRN medications administered. Last COWS and CIWA noted at 1. Will endorse to continue plan of care as ordered.
--- NOTE | 2016-11-17 07:50 | NUR ---
START OF SHIFT NOTE Received report from night nurse, 36 year old male admitted for Opiate/Benzo/Crystal Methamphetamine/Cocaine Dependence. NKA, regular diet,Full code.Pt reported PMH: GERD. Pt reported using Heroin IV 1g/daily for 2 year, Xanax 2.5 bars/daily for 2 year on and off, Crystal Methamphetamine IV 0.75g/daily for 2 years, and Cocaine IV 1-2g/daily for the past 3 months. Pt cont with treatment on right lower leg abscess. Upon assessment, Pt is alert awake oriented x4 in stable condition. Breathing normal respirations even and unlabored, denies SOB/chest pain, denies n/v/d, skin warm and moist, bowel sounds active x4, abdomen soft. Safety measures in place, call light within reach, side rails up x2, Call light within reach. Will continue to monitor.
[2016-11-17 08:00] VITALS: BP 103/67
[2016-11-17] MEDS: FOLIC ACID 1 MG TABLET PO SCH (08:35)
[2016-11-17] MEDS: GABAPENTIN 300 MG CAPSULE PO SCH ×3 (08:35→21:41)
[2016-11-17] MEDS: MULTIVITAMINS,THERAPEUTIC TABLET PO SCH (08:35)
[2016-11-17] MEDS: FAMOTIDINE 20 MG TABLET PO SCH ×2 (08:35→16:52)
[2016-11-17] MEDS: CLONIDINE HCL 0.1 MG TABLET PO SCH ×3 (08:36→21:41)
[2016-11-17] MEDS: SODIUM HYPOCHLORITE 0.5% TOP SCH (08:43)
[2016-11-17 12:00] VITALS: BP 117/84
[2016-11-17 16:00] VITALS: BP 112/76
[2016-11-17 18:22] LABS: *AMPHETAMINE, URINE NEGATIVE (NEGATIVE); *BARBITURATE, URINE NEGATIVE (NEGATIVE); *CANNABINOID, URINE NEGATIVE (NEGATIVE); *COCCAINE, URINE NEGATIVE (NEGATIVE); *OPIATE, URINE POSITIVE (NEGATIVE); *PHENCYCLIDINE SCREEN,URINE NEGATIVE (NEGATIVE)
--- NOTE | 2016-11-17 18:59 | NUR ---
END OF SHIFT NOTE Gave report to night nurse, 36 year old male admitted on 11/10/2016 Opiate/Benzo/Crystal Methamphetamine/Cocaine Dependence. NKA/Full code/Regular diet. Pt reported PMH: GERD. Pt reported using Heroin IV 1g/daily, at this rate for 2 years, Xanax 2.5 bars/daily, at this rate of 2 year on and off, Crystal Methamphetamine IV 0.75g/daily, at this rate of 2 year on and off and Cocaine IV 1-2g/daily, last intake of 0.5 g on 11/10/16, at this rate for the past 3 months. Pt completed his taper tolerated well. Pt scheduled to discharge in AM. No PRN's administered during shift. Pt attended all groups and activities. Treatment done on right lower leg as ordered. Pictures taken and placed in the chart. Pt denied any pain. Last CIWA-0, COWS-1. Pt's total intake 2573ml, voided x1. Safety measures in place, call light within reach. Pt endorsed to night nurse in stable condition.
--- NOTE | 2016-11-17 19:10 | NUR ---
Start of Shift Patient Received. Patient is in activities room participating in group activities. Patient is a 36 year old male, admitted on 11/10/16 for Opiate and Benzo Dependence, under the care of Dr. Osorio. Patient received both 5 day Ativan and 5 day Subutex. Patient verbalizes no known allergies, wishes to be full code, following a regular diet, placed on fall and seizure precautions. Past Medical History of Gerd. Patient currently receiving ATB Levaquin PO for R Leg Cellulitis. Per endorsement, Patient is set for discharges tomorrow morning 11/18/16 to [facility]. Patient active with group activities and is tolerating plan of care well. Would care rendered with no further skin breakdowns or infections noted. Will continue plan of care as ordered.
[2016-11-17] MEDS ORDERED: Gabapentin PO (19:44)
[2016-11-17] MEDS ORDERED: Ibuprofen PO (19:44)
[2016-11-17] MEDS ORDERED: CLON0.1T14 PO (19:44)
[2016-11-17] MEDS ORDERED: DICY20TA28 PO (19:44)
[2016-11-17] MEDS ORDERED: DIPH50CA37 PO (19:44)
[2016-11-17] MEDS ORDERED: LEVO500T15 PO (19:44)
[2016-11-17] MEDS ORDERED: HYDR-3895 PO (19:44)
[2016-11-17] MEDS ORDERED: Famotidine PO (19:44)
[2016-11-17 21:12] VITALS: BP 134/86
[2016-11-17] MEDS: LEVOFLOXACIN 500 MG TABLET PO SCH (21:41)
[2016-11-17] MEDS: MIRTAZAPINE 15 MG TABLET PO SCH (21:42)
[2016-11-17 23:53] LABS: *AMPHETAMINE, URINE NEGATIVE (NEGATIVE); *BARBITURATE, URINE NEGATIVE (NEGATIVE); *CANNABINOID, URINE NEGATIVE (NEGATIVE); *COCCAINE, URINE NEGATIVE (NEGATIVE); *OPIATE, URINE NEGATIVE (NEGATIVE); *PHENCYCLIDINE SCREEN,URINE NEGATIVE (NEGATIVE)
--- NOTE | 2016-11-18 00:28 | NUR ---
Vitals, CIWA, and COWS Patient Refused 0000 vitals prior to bed. Patient states "I would like to sleep" Patient noted in bed sleeping. Breathing even and non labored. No signs of pain or discomfort noted. Patients respirations noted at 14. CIWA and COWS not able to be completed as per order. Will continue to monitor. Addendum: 11/18/16 at 0029 by BENNY LANGLEY LVN Amended: Links added.
--- NOTE | 2016-11-18 04:08 | NUR ---
Vitals, CIWA, and COWS Patient Refused 0400 vitals prior to bed. Patient states "I would like to sleep" Patient noted in bed sleeping. Breathing even and non labored. No signs of pain or discomfort noted. Patients respirations noted at 14. CIWA and COWS not able to be completed as per order. Will continue to monitor. Addendum: 11/18/16 at 0408 by BENNY LANGLEY LVN Amended: Links added.
--- NOTE | 2016-11-18 07:11 | NUR ---
End of Shift Patient is in bed sleeping. Breathing even and non labored. No signs of pain or discomfort noted. Patient is a 36 year old male, admitted on 11/10/16 for Opiate and Benzo Dependence, under the care of Dr. Osorio. Patient received both 5 day Ativan and 5 day Subutex. Patient verbalizes no known allergies, wishes to be full code, following a regular diet, placed on fall and seizure precautions. Past Medical History of Gerd. Patient is set for discharge today 11/18/16 to [facility]. No PRN medications administered. Last COWS noted at 0 and CIWA noted at 1. Will endorse to continue plan of care as ordered.
--- NOTE | 2016-11-18 07:30 | NUR ---
START OF SHIFT Received report from night nurse. 36 year old male admitted on 11/10/16 for Opiate/Benzo/Crystal Methamphetamine/Cocaine Dependence. Pt is A/O x4. NKA, regular diet,Full code. Medical hx of GERD. Pt reports using Heroin IV 1g/daily for 2 year, Xanax 2.5 bars/daily for 2 year on and off, Crystal Methamphetamine IV 0.75g/daily for 2 years, and Cocaine IV 1-2g/daily for the past 3 months. Pt has right leg abscess and wound care is being done q24h, pt tolerates well. I&D done by surgeon. Pt has been medically cleared for d/c, and is not presenting with s/s of withdrawals. V/S remain WNL, COWS 1, CIWA 0. Pt slept for 6 hours. No PRN medications needed or administered throughout night. RR even and unlabored, denies SOB/chest pain. Denies n/v/d, skin warm and moist. Safety measures in place, call light within reach, side rails up x2, Call light within reach. All need met at this time, will continue to monitor.
[2016-11-18 08:20] VITALS: BP 114/74
[2016-11-18] MEDS: MULTIVITAMINS,THERAPEUTIC TABLET PO SCH (09:22)
[2016-11-18] MEDS: FOLIC ACID 1 MG TABLET PO SCH (09:22)
[2016-11-18] MEDS: SODIUM HYPOCHLORITE 0.5% TOP SCH (09:22)
[2016-11-18] MEDS: CLONIDINE HCL 0.1 MG TABLET PO SCH (09:22)
[2016-11-18] MEDS: FAMOTIDINE 20 MG TABLET PO SCH (09:22)
[2016-11-18] MEDS: GABAPENTIN 300 MG CAPSULE PO SCH (09:22)
[2016-11-18 12:00] VITALS: BP 114/74
--- NOTE | 2016-11-18 15:25 | NUR ---
D/C NOTE Pt is A/O x4. V/S remain WNL. Pt denies SI/HI or hallucinations. Pt shows no s/s of acute withdrawal at this time, and is stable. MD has medically cleared pt for d/c . Education on Hepatitis C, smoking cessation and medication side effects provided. Pt verbalizes understanding. All pt belongings are in belonging bag, including home medications. Refuses FLU and PNU vaccination. Pt is being accompanied by CIRCUIT TESTER at this time to be transported to rehab. All needs met.
[2016-11-19 06:06] LABS: *CODEINE Positive (.); *HYDROMORPHONE Comment: (.); *OPIATES Comment: ng/mL (Cutoff=300)
[2016-11-19 08:29] LABS: *AMPHETAMINE Positive (.); *BENZODIAZEPINES Positive (.); *COCAINE Positive (.); *METHAMPHETAMINE Positive (.); *NORDIAZEPAM Negative (Cutoff=300); *OXAZEPAM Negative (Cutoff=300)
== END 2016-11-18 15:25 | disposition other institution (70) | DRG 895 ==
LOC: SRC 03:26
PROVIDERS: ADMIT Internal Medicine; ATTEND Internal Medicine
PROC: HZ2ZZZZ Detoxification Services for Substance Abuse Treatment (ICD-10-PCS; principal; 2016-11-10)
PROC: HZ41ZZZ Group Counseling for Substance Abuse Treatment, Behavioral (ICD-10-PCS; 2016-11-12)
PROC: HZ31ZZZ Individual Counseling for Substance Abuse Treatment, Behavioral (ICD-10-PCS; 2016-11-13)
PROC: 0J9N3ZZ Drainage of Right Lower Leg Subcutaneous Tissue and Fascia, Percutaneous Approach (ICD-10-PCS; 2016-11-14)
DX: F11.23 Opioid dependence with withdrawal (principal); F15.20 Other stimulant dependence, uncomplicated; F14.20 Cocaine dependence, uncomplicated; L03.115 Cellulitis of right lower limb; L02.415 Cutaneous abscess of right lower limb; N17.9 Acute kidney failure, unspecified; B19.9 Unspecified viral hepatitis without hepatic coma; S81.831S Puncture wound without foreign body, right lower leg, sequela; B95.61 Methicillin susceptible Staphylococcus aureus infection as the cause of diseases classified elsewhere; W26.8XXS Contact with other sharp object(s), not elsewhere classified, sequela; Z81.8 Family history of other mental and behavioral disorders; K70.10 Alcoholic hepatitis without ascites; F10.10 Alcohol abuse, uncomplicated; Y90.9 Presence of alcohol in blood, level not specified; N18.9 Chronic kidney disease, unspecified; D64.9 Anemia, unspecified; E88.09 Other disorders of plasma-protein metabolism, not elsewhere classified; E86.0 Dehydration; F13.230 Sedative, hypnotic or anxiolytic dependence with withdrawal, uncomplicated; K21.9 Gastro-esophageal reflux disease without esophagitis
CPT/HCPCS: 36415; 70030-TC; 76770; 80307; 80324; 80346; 80353; 80361; 83690; 83735; 84300; 84443; 85025; 86580; 87040; 87070; 87806; 93005; A4663; G6040-TC; J3490; Q0163